=== PATIENT | male | born 1980 | race Caucasian/White ===

== ENCOUNTER 2023-05-09 15:40 | Outpatient (CLI) | payer BC | END 2023-05-09 15:41 | disposition home or self-care (01) | LOC: CSHEKG 15:40 | PROVIDERS: ATTEND Thoracic Surgery (Cardiothoracic Vascular Surgery) | DX: Z01.818 Encounter for other preprocedural examination (principal); K21.9 Gastro-esophageal reflux disease without esophagitis | CPT/HCPCS: 93005; 93010 ==

== ENCOUNTER 2024-05-09 08:08 | Outpatient (CLI) | payer BC | END 2024-05-09 08:09 | disposition home or self-care (01) | LOC: CSHCT 08:08 | PROVIDERS: ATTEND Family Medicine | DX: R07.89 Other chest pain (principal) | CPT/HCPCS: 71250 ==